=== PATIENT | female | born 1990 | race Hispanic/Latino ===

== ENCOUNTER 2024-02-02 14:04 | Day surgery (SDC) | payer OTHER | END 2024-02-02 16:30 | disposition home health service (06) | LOC: CSHLD/OP 14:04 | PROVIDERS: ATTEND Family Medicine | DX: O36.8130 Decreased fetal movements, third trimester, not applicable or unspecified (principal); O99.013 Anemia complicating pregnancy, third trimester; O32.1XX0 Maternal care for breech presentation, not applicable or unspecified; Z79.82 Long term (current) use of aspirin; Z79.899 Other long term (current) drug therapy; Z3A.38 38 weeks gestation of pregnancy | CPT/HCPCS: 76819 ==

== ENCOUNTER 2024-02-04 08:07 | Day surgery (SDC) | payer OTHER ==
[2024-02-04] MEDS ORDERED: hydrALAZINE 20 MG/ML VIAL SLOW IVP PRN (08:29)
[2024-02-04 08:40] VITALS: BMI 29.8
[2024-02-04] MEDS ORDERED: Mineral Oil PER (1 ML CHG) TOP SCH (09:30)
[2024-02-04] MEDS ORDERED: Terbutaline Sulfate 1 MG/ML VIAL SC SCH (10:00)
== END 2024-02-04 11:35 | disposition home or self-care (01) ==
LOC: CSHLD 08:07 → UNDOADMIN 08:07 → CSHSDC 08:07 → UNDODISIN 11:35 → EDSTATUS 02-05 14:03
PROVIDERS: ATTEND Obstetrics & Gynecology
PROC: 10S0XZZ Reposition Products of Conception, External Approach (ICD-10-PCS; principal; 2024-02-04)
DX: O32.1XX0 Maternal care for breech presentation, not applicable or unspecified (principal); Z3A.38 38 weeks gestation of pregnancy; Z79.82 Long term (current) use of aspirin; Z79.899 Other long term (current) drug therapy

== ENCOUNTER 2024-02-12 20:01 | Inpatient (IN) | payer OTHER ==
[2024-02-12 20:17] VITALS: BMI 31.1
[2024-02-12] MEDS ORDERED: Promethazine HCl 25 MG/ML VIAL IM PRN (21:33)
[2024-02-12] MEDS ORDERED: Carboprost 250 MCG/ML AMP IM PRN (21:33)
[2024-02-12] MEDS ORDERED: Ondansetron PF 4 MG/2 ML Vial IVP PRN (21:33)
[2024-02-12] MEDS ORDERED: Lidocaine 1% (PF) 30 ML VIAL SC PRN (21:33)
[2024-02-12] MEDS ORDERED: Methylergonovine 0.2 MG/ML VIAL IM PRN (21:33)
[2024-02-12] MEDS ORDERED: Acetaminophen 500 MG TAB PO PRN (21:33)
[2024-02-12] MEDS ORDERED: Misoprostol 200 MCG TAB PR PRN (21:33)
[2024-02-12] MEDS ORDERED: Diphenoxylate HCl/Atropine Tablet PO PRN (21:33)
[2024-02-12] MEDS ORDERED: HYDROcodone/Acetaminophen 5/325 mg Tablet PO PRN (21:33)
[2024-02-12] MEDS ORDERED: hydrALAZINE 20 MG/ML VIAL SLOW IVP PRN (21:33)
[2024-02-12] MEDS ORDERED: Tranexamic Acid 1,000 MG/10 ML VIAL IVP PRN (21:33)
[2024-02-12] MEDS ORDERED: Lactated Ringer's 1,000 ML IV SCH (21:45)
[2024-02-12] MEDS ORDERED: Oxytocin 30 units/NS 500 ML 500 ML IV SCH ×2 (21:45)
[2024-02-12 21:46] LABS: Hematocrit 31.3 % (34.9-44.5); Hemoglobin 10.3 g/dL (12.0-15.5); Mean Corpuscular HGB CONC 32.9 g/dL (32.0-36.0); Mean Corpuscular Hemoglobin 25.2 pg (27.0-33.0); Mean Corpuscular Volume 76.7 fL (81.6-98.3); Mean Platelet Volume 10.1 fL (7.4-10.4); Platelet Count 244 10x3/uL (150-450); RBC Distribution Width 19.5 % (11.5-14.5); Red Blood Cell (RBC) Count 4.08 10x6/uL (3.90-5.03); White Blood Cell (WBC) Count 6.8 10x3/uL (3.5-10.5)
[2024-02-12] MEDS: Misoprostol 100 MCG TAB PO SCH (21:46)
[2024-02-12 22:52] LABS: HBsAg Index 0.17 S/CO (0-0.99); Hep B Surf Ag - L&D Non-Reactive S/CO (NonReactive)
[2024-02-12 22:53] LABS: Syphilis Antibody Nonreactive (Nonreactive); Syphilis Antibody Index 0.03 S/CO (<1.00 Non-Reactive)
[2024-02-13] MEDS: fentaNYL 50 mcg/mL 1 mL Vial SLOW IVP PRN (07:40)
[2024-02-13] MEDS: fentaNYL/Ropivacaine Epidural 100 ML ONE (09:17)
[2024-02-13] MEDS ORDERED: Moisturizing Cream (Eucerin) 113 GM JAR TOP PRN (10:40)
[2024-02-13] MEDS ORDERED: Naloxone HCl 0.4 mg/ml Vial IVP PRN ×2 (10:40)
[2024-02-13] MEDS ORDERED: Acetaminophen 325 MG TAB PO PRN (10:40)
[2024-02-13] MEDS ORDERED: Promethazine HCl 25 MG/ML VIAL IM PRN ×2 (10:40→14:56)
[2024-02-13] MEDS ORDERED: diphenhydrAMINE 50 MG/ML VIAL IVP PRN (10:40)
[2024-02-13] MEDS ORDERED: Lactated Ringer's 500 ML IV PRN (10:40)
[2024-02-13] MEDS ORDERED: Ondansetron PF 4 MG/2 ML Vial IVP PRN ×2 (10:40→14:56)
[2024-02-13] MEDS ORDERED: ePHEDrine Sulfate 50 MG/10 ML VIAL SLOW IVP PRN (10:40)
[2024-02-13] MEDS ORDERED: fentaNYL 2 mcg/Ropivacaine 0.2% Epidural 100 ML CADD EPIDURAL SCH (10:45)
[2024-02-13] MEDS ORDERED: Communication Order-Pharmacy FS SCH (10:45)
[2024-02-13] MEDS: Oxytocin 30 units/NS 500 ML 500 ML IV SCH (11:42)
[2024-02-13] MEDS: Ibuprofen 800 MG TAB PO PRN (14:04)
[2024-02-13] MEDS ORDERED: cloNIDine 0.1 MG TAB PO PRN (14:56)
[2024-02-13] MEDS ORDERED: Lanolin Ointment 7 GM TUBE TOP PRN (14:56)
[2024-02-13] MEDS ORDERED: hydrALAZINE 20 MG/ML VIAL SLOW IVP PRN (14:56)
[2024-02-13] MEDS ORDERED: diphenhydrAMINE 25 MG CAP PO PRN (14:56)
[2024-02-13] MEDS ORDERED: Bisacodyl 10 MG SUPP PR PRN (14:56)
[2024-02-13] MEDS ORDERED: Milk Of Magnesia 30 ML UDCUP PO PRN (14:56)
[2024-02-13] MEDS ORDERED: HYDROcodone/Acetaminophen 5/325 mg Tablet PO PRN ×2 (14:56)
[2024-02-13] MEDS ORDERED: Benzocaine-Menthol 82.5 ML CAN TOP PRN (14:56)
[2024-02-13] MEDS: Boostrix 0.5 ML (Tdap) VIAL (>/=7 yrs of age) IM ONE (15:10)
[2024-02-13] MEDS: Ferrous Sulfate 325 MG TAB PO SCH (15:16)
[2024-02-13] MEDS ORDERED: Bupivacaine PF 0.5% 30 ML VIAL ONE (19:46)
[2024-02-13] MEDS ORDERED: Bupivacaine 0.25% HCL 30 ML VIAL ONE (19:46)
[2024-02-13] MEDS: Docusate 100 MG CAP PO SCH (21:36)
[2024-02-13] MEDS: Ibuprofen 800 MG TAB PO SCH (21:40)
[2024-02-14 07:36] VITALS: BP 116/55; TEMP 98.1
[2024-02-14] MEDS: Prenatal Vitamin 1 TAB PO SCH (09:38)
== END 2024-02-14 15:15 | disposition home or self-care (01) | DRG 807 ==
LOC: CSHLD 20:01 → CSHPP 02-13 14:33
PROVIDERS: ADMIT Family Medicine; ATTEND Family Medicine
PROC: 10E0XZZ Delivery of Products of Conception, External Approach (ICD-10-PCS; principal; 2024-02-13)
PROC: 3E0P7VZ Introduction of Hormone into Female Reproductive, Via Natural or Artificial Opening (ICD-10-PCS; 2024-02-13)
DX: O13.4 Gestational [pregnancy-induced] hypertension without significant proteinuria, complicating childbirth (principal); Z37.0 Single live birth; Z3A.39 39 weeks gestation of pregnancy
CPT/HCPCS: 36415; 85027; 86780; 86850; 86900; 86901; 87340; J0665; J2590; J3010